=== PATIENT | male | born 2000 | race Caucasian/White ===

== ENCOUNTER 2021-05-17 10:43 | Emergency (ER) | payer OTHER ==
[~2021-05-17] VITALS: Ht 182.9 cm; Wt 90.7 kg
[2021-05-17 11:23] LABS: URINE BILIRUBIN NEGATIVE (Negative); URINE BLOOD NEGATIVE (Negative); URINE CLARITY CLEAR; URINE COLOR YELLOW; URINE GLUCOSE-RANDOM NEGATIVE (Negative); URINE KETONES NEGATIVE (Negative); URINE LEUKOCYTES NEGATIVE (Negative); URINE NITRITE NEGATIVE (Negative); URINE PROTEIN NEGATIVE (Negative)
[2021-05-17 11:36] LABS: CASTS None Seen /LPF (None Seen); CRYSTALS None Seen /LPF (None Seen); URINE WBC 0-5 Rare /HPF (0-5)
[2021-05-17 12:29] VITALS: BP 126/72
== END 2021-05-17 12:29 | disposition home or self-care (01) ==
LOC: M.ERS 10:43
PROVIDERS: Physician Assistant
DX: I86.1 Scrotal varices (principal)